=== PATIENT | male | born 1975 ===

== ENCOUNTER 2016-10-16 14:48 | Inpatient (IN) | payer MEDICAID, OTHER ==
[2016-10-16 14:56] VITALS: RESP 20
[2016-10-16] MEDS ORDERED: Clindamycin 600mg/50ml D5W 50 ML IVPB ONE (15:46)
[2016-10-16 15:57] LABS: BASO % 0.2 % (0.0-2.0); EOS % 0.2 % (0.0-4.0); HEMATOCRIT 48.3 % (35.0-51.0); LYMPH # 0.8 K/uL (1.0-4.3); LYMPH % 7.5 % (20.0-40.0); MEAN CELL VOLUME 88.2 fL (80.0-94.0); MEAN CORPUSCULAR HEMOGLOBIN 29.6 pg (27.0-31.0); MEAN CORPUSCULAR HGB CONC 33.6 g/dL (33.0-37.0); MONO # 0.6 K/uL (0.0-0.8); MONO % 5.2 % (0.0-10.0); PLATELET COUNT 247 K/uL (130-400); RED CELL DISTRIBUTION WIDTH 13.2 % (11.5-14.5); WHITE BLOOD COUNT 11.2 K/uL (4.8-10.8)
--- NOTE | 2016-10-16 15:59 | RAD ---
PROCEDURE: CHEST RADIOGRAPH, 1 VIEW HISTORY: pre-adm COMPARISON: None available. FINDINGS: LUNGS: Clear. PLEURA: No pneumothorax or pleural fluid seen. CARDIOVASCULAR: Normal. OSSEOUS STRUCTURES: No significant abnormalities. VISUALIZED UPPER ABDOMEN: Normal. OTHER FINDINGS: None. IMPRESSION: No active disease.
[2016-10-16 16:07] LABS: CHLORIDE 101 mmol/L (98-107); SODIUM 142 mmol/L (132-148)
[2016-10-16 16:08] LABS: POTASSIUM 3.8 mmol/L (3.6-5.2)
--- NOTE | 2016-10-16 16:08 | RAD ---
PROCEDURE: Right tibia/fibula dated 10/16/2016 HISTORY: cellulitis COMPARISON: No prior study available comparison. TECHNIQUE: Frontal and lateral views of the right tibia and fibula performed. FINDINGS: Current study reveals no evidence of acute displaced fracture nor dislocation. The osseous structures appear intact. No evidence of cortical destruction. There are infiltration. Changes seen within lateral subcutaneous tissues consistent with this patient's history of cellulitis. No evidence of gas seen within the soft tissues. IMPRESSION: Findings consistent with cellulitis involving the lateral soft tissues as described. No air seen within the soft tissues. No evidence of acute displaced fracture, dislocation or cortical destructive changes
[2016-10-16 16:10] LABS: ALB/GLOB RATIO 1.3 (1.0-2.1); ALKALINE PHOSPHATASE 103 U/L (38-126); ALT/SGPT 24 U/L (21-72); AST/SGOT 27 U/L (17-59); BILIRUBIN,TOTAL 0.6 mg/dL (0.2-1.3); BLOOD UREA NITROGEN 11 mg/dL (9-20); CARBON DIOXIDE 29 mmol/L (22-30); GFR AFRICAN-AMERICAN > 60; GLUCOSE,RANDOM 98 mg/dL (75-110)
--- NOTE | 2016-10-16 16:37 | C.PDOC ---
History Of Present Illness 41 y/o male presents to the ED with complains of abscess to right lower lateral leg x4 days. Abscess is painful and draining. Pt also reports subjective fever. No other complaints at this time. Time Seen by Provider: 10/16/16 14:59 Chief Complaint (Nursing): Lower Extremity Problem/Injury History Per: Patient History/Exam Limitations: no limitations Onset/Duration Of Symptoms: Days Current Symptoms Are (Timing): Still Present Severity: Moderate Recent travel outside of the [place]: No Past Medical History Reviewed: Historical Data, Nursing Documentation, Vital Signs Vital Signs: Last Vital Signs Temp 99.4 F 10/16/16 14:54 Pulse 86 10/16/16 14:54 Resp 20 10/16/16 14:54 BP 138/92 H 10/16/16 14:54 Pulse Ox 100 10/16/16 16:38 Family History: States: Unknown Family Hx - Social History Hx Alcohol Use: No Hx Substance Use: No - Immunization History Hx Tetanus Toxoid Vaccination: No Hx Influenza Vaccination: No Hx Pneumococcal Vaccination: No Review Of Systems Except As Marked, All Systems Reviewed And Found Negative. Constitutional: Positive for: Fever Skin: Positive for: Other (abscess to right lower leg, painful, draining) Physical Exam - Physical Exam Appears: Non-toxic, No Acute Distress Skin: Warm, Dry, Other (right lateral proximal lower leg with ulcer-like lesion , purulent discharge, draining, surrounding erythema with streaking down to lateral malleolus) Head: Atraumatic, Normacephalic Cardiovascular: Rhythm Regular Respiratory: Normal Breath Sounds, No Rales, No Rhonchi, No Wheezing Extremity: Normal ROM, No Pedal Edema, Capillary Refill (<2 seconds) Neurological/Psych: Oriented x3, Normal Motor, Normal Sensation ED Course And Treatment - Laboratory Results Result Diagrams: 10/16/16 15:48 10/16/16 15:48 O2 Sat by Pulse Oximetry: 100 (on room air) Pulse Ox Interpretation: Normal Progress Note: Plan: Wound and blood culture, labs, clindamycin IV. Disposition - Disposition Disposition: HOSPITALIZED Disposition Time: 16:42 Condition: STABLE - Clinical Impression Clinical Impression: Cellulitis - PA / ASSET PROTECTION ASSISTANT / Resident Statement MD/DO has reviewed & agrees with the documentation as recorded. - Scribe Statement The provider has reviewed the documentation as recorded by the Tommy Thompson All medical record entries made by the Scribe were at my direction and personally dictated by me. I have reviewed the chart and agree that the record accurately reflects my personal performance of the history, physical exam, medical decision making, and the department course for this patient. I have also personally directed, reviewed, and agree with the discharge instructions and disposition. Decision To Admit - Pt Status Changed To: Hospital Disposition Of: Inpatient - Admit Certification Admit to Inpatient:: After my assessment, the patient will require hospitalization for at least two midnights. This is because of the severity of symptoms shown, intensity of services needed, and/or the medical risk in this patient being treated as an outpatient. - InPatient: Physician Admission Certification: I certify that this patient requires 2 or more midnights of care for the following reason:: Needs more than 2 days of IV abx - . Bed Request Type: Regular Admitting Physician: Benny Hopson Patient Diagnosis: Cellulitis
[2016-10-16 16:57] LABS: NEUTROPHIL 86 % (50-75); TOTAL CELLS COUNTED 100
[2016-10-16 16:59] LABS: LARGE PLATELETS PRESENT
--- NOTE | 2016-10-16 17:24 | CP.PCM.HP ---
History of Present Illness - History of Present Illness History of Present Illness: Patient seen, examined at [facility] with mother at bedside on 10/16/16 at 5:00PM. CC: "lI have pain over right side" HPI: 41 year old Male denies prior medical history reports comes for worsening right lower leg wound X5 days. Patient reports he noticed on Wednesday which he reports he had a bubble wound over his right lower extremity. Patient reports he tried to clean with soap with water, rubbing alcohol, and antibiotic ointment but cannot recall the name but did not help. Patient reports he came in because the pain, associated swelling and pruritus became worse. Patient accompanied by mother at bedside. ROS: Denies fever, denies chills, denies fatigue Denies chest pain, denies shortness of breathe, denies cough Denies abdominal pain, denies nausea, denies vomiting, denies change in bowel habits Denies dysuria, denies hematuria, denies frequency Denies numbness/tingling Reports pain localized to right lower leg wound, associated pruritus and swelling PMHx: denies Surgery Hx: denies Allergies: denies Medications: not currently Social hx: denies smoking, denies etoh, denies illict drug use Family hx: mother-good health (at bedside); father-HTN HCM: does not have a primary care doctor In the ED, received one dose of Clindamcyin IV. Present on Admission - Present on Admission Any Indicators Present on Admission: No History of DVT/PE: No History of Uncontrolled Diabetes: No Urinary Catheter: No Decubitus Ulcer Present: No Review of Systems - Constitutional Constitutional: absent: Anorexia, Chills, Daytime Sleepiness, Headache, Increased Appetite - EENT Eyes: absent: Blurred Vision Ears: absent: Decreased Hearing Nose/Mouth/Throat: absent: Nasal Congestion, Nasal Discharge, Sore Throat - Cardiovascular Cardiovascular: absent: Chest Pain, Claudication, Dyspnea, Leg Edema, Palpitations - Respiratory Respiratory: absent: Cough, Dyspnea, Chest Congestion - Gastrointestinal Gastrointestinal: absent: Abdominal Pain, Change in Stool Character, Constipation, Nausea, Vomiting - Genitourinary Genitourinary: absent: Dysuria, Flank Pain, Hematuria, Pyuria - Musculoskeletal Musculoskeletal: absent: Back Pain, Deformity, Joint Swelling, Myalgias, Neck Pain, Numbness - Integumentary Integumentary: Pruritus, Rash, Skin Pain, Skin Ulcer, Swelling. absent: Lesions , Photosensitivity - Neurological Neurological: absent: Confusion, Disequilibrium, Headaches, Syncope, Tremor, Weakness - Psychiatric Psychiatric: absent: Change in Appetite - Endocrine Endocrine: absent: Fatigue, Palpitations Past Patient History - Infectious Disease Hx of Infectious Diseases: None - Tetanus Immunizations Tetanus Immunization: Unknown - Past Medical History & Family History Past Medical History?: Yes Past Family History: Reviewed and not pertinent - Past Social History Smoking Status: Never Smoked - PSYCHIATRIC Hx Substance Use: No - SURGICAL HISTORY Hx Surgeries: No - ANESTHESIA Hx Anesthesia: No Hx Anesthesia Reactions: No Meds Allergies/Adverse Reactions: Allergies Allergy/AdvReac Type Severity Reaction Status Date / Time No Known Allergies Allergy Verified 10/16/16 14:59 Physical Exam - Constitutional Appears: Non-toxic, No Acute Distress - Head Exam Head Exam: NORMAL INSPECTION - Eye Exam Eye Exam: EOMI, PERRL Pupil Exam: NORMAL ACCOMODATION, PERRL - ENT Exam ENT Exam: Mucous Membranes Dry - Neck Exam Neck exam: Positive for: Normal Inspection. Negative for: Lymphadenopathy, Meningismus, Tenderness - Respiratory Exam Respiratory Exam: Clear to Auscultation Bilateral, NORMAL BREATHING PATTERN. absent: Rales, Rhonchi, Wheezes, Respiratory Distress - Cardiovascular Exam Cardiovascular Exam: REGULAR RHYTHM, +S1, +S2 - GI/Abdominal Exam GI & Abdominal Exam: Normal Bowel Sounds, Soft. absent: Distended, Firm, Guarding, Rebound, Rigid, Tenderness - Extremities Exam Extremities exam: Positive for: pedal pulses present. Negative for: joint swelling, pedal edema, tenderness - Back Exam Back exam: absent: CVA tenderness (L), CVA tenderness (R) - Neurological Exam Neurological exam: Alert, CN II-XII Intact, Oriented x3 - Psychiatric Exam Psychiatric exam: Normal Affect, Normal Mood - Skin Skin Exam: Dry, Rash, Warm Additional comments: right lower extremity * aspect of lateral thigh * wound is diameter of 2.0 cm and with associated erythema is 7.5cm * wound is brown eschar, with pinpoint blood coming from the center * area demarcated over the site Results - Vital Signs Recent Vital Signs: Last Vital Signs Temp 98.6 F 10/16/16 16:55 Pulse 70 10/16/16 16:55 Resp 20 10/16/16 16:55 BP 117/80 10/16/16 16:55 Pulse Ox 99 10/16/16 16:55 - Labs Result Diagrams: 10/16/16 15:48 10/16/16 15:48 Assessment & Plan (1) Abscess Status: Suspected Comment: Ordered for non-extremity ultrasound r/o abscess for right lower extremity wound. General surgery (Dr. Montaño) consulted-->help appreciated reason: possible abscess. IV abx: Zosyn 3.375g IV Q 6 hours PRN; Vancomycin 1gram IV Q 12hours (2) Cellulitis Status: Acute Comment: Ordered for non-extremity ultrasound r/o abscess for right lower extremity wound. General surgery (Dr. Montaño) consulted-->help appreciated reason: possible abscess. IV abx: Zosyn 3.375g IV Q 6 hours PRN; Vancomycin 1gram IV Q 12hours (active since 10/16/16). Florastor 250mg PO bid. Demarcated area of cellulitis. Tibia-fibula (10/16/16): consistent with cellulitis involving the lateral soft tissues as described. No air seen within the soft tissues. No evidence of acute displaced fracture, dislocation, or cortical destructive changes. (3) Leukocytosis Status: Acute Comment: likely secondary to cellulitis and/or abscess. will rule out other infectious causes. Blood cultures X 2 and urine culture ordered (4) Prophylactic measure Status: Acute Comment: Protonix 40mg Iv q daily for GI ppx. SCDs b/l for DVT ppx - Assessment and Plan (Free Text) Assessment: Disposition: IV abx General surgery eval Pain PRN US r/o abscess - Date & Time Date: 10/16/16 Time: 17:00
--- NOTE | 2016-10-16 18:27 | US ---
Indication: right lower leg wound; possible abscess Extremity nonvascular ultrasound, right lower leg wound Comparison: Tibia fibula x-ray performed earlier the same day. Findings: Images were obtained in the limited region of interest. Soft tissue edema. No focal fluid collection or definite abscess identified. Impression: Limited study. Soft tissue edema.
[2016-10-16] MEDS: Piperacill/Tazo 3.375gm in Dex 50 ML IVPB SCH ×2 (18:30→23:53)
[2016-10-16] MEDS: Sodium Chloride 0.9% 1,000 ML IV SCH (18:30)
[2016-10-16] MEDS: Vancomycin 1 gm/NS 200 ml 200 ML IVPB SCH (19:00)
[2016-10-16] MEDS: Saccharomyces Boulardi 250 mg Cap PO SCH (19:16)
[2016-10-17] MEDS: Sodium Chloride 0.9% 1,000 ML IV SCH (05:27)
[2016-10-17] MEDS: Piperacill/Tazo 3.375gm in Dex 50 ML IVPB SCH ×3 (05:28→17:27)
[2016-10-17] MEDS: Vancomycin 1 gm/NS 200 ml 200 ML IVPB SCH ×2 (06:21→20:59)
--- NOTE | 2016-10-17 06:31 | CP.PCM.CON ---
History of Present Illness - History of Present Illness History of Present Illness: Surgery Consult: Dr. Montaño Pt is a 41M with no PMHx who presented to with complaints of Right leg swelling & pain. Pt states he had a small bump on his R leg on Wednesday that kept getting bigger as the week progressed. He also started noticing surrounding redness and pain. Pt states the area was itchy and he tried several home remedies but the swelling did not improve. He denies any trauma to the area but states he may have been bit by something. Denies other associated symptoms such as N/V, F/C, chest pain or SOB. Pt had an X-ray and US of his R lower leg which are consistent with soft tissue inflammation/cellulitis w/o definite abscess formation. Surgery consulted to evaluate. Currently, pt is resting comfortably in bed. Denies any pain or difficulty ambulating. PMHx: denies PSHx: denies SocialHx: denies smoking, EtOH/drugs NKDA Review of Systems - Review of Systems All systems: reviewed and no additional remarkable complaints except (as per HPI ) Past Patient History - Infectious Disease Hx of Infectious Diseases: None - Tetanus Immunizations Tetanus Immunization: Unknown - Past Medical History & Family History Past Medical History?: Yes - Past Social History Smoking Status: Never Smoked - MUSCULOSKELETAL/RHEUMATOLOGICAL Hx Falls: No - PSYCHIATRIC Hx Substance Use: No - SURGICAL HISTORY Hx Surgeries: No - ANESTHESIA Hx Anesthesia: No Hx Anesthesia Reactions: No Meds Allergies/Adverse Reactions: Allergies Allergy/AdvReac Type Severity Reaction Status Date / Time No Known Allergies Allergy Verified 10/16/16 14:59 - Medications Medications: Current Medications Acetaminophen (Tylenol 325mg Tab) 650 mg PO Q6 PRN PRN Reason: Pain, moderate (4-7) Piperacillin Sod/Tazobactam Sod (Zosyn 3.375 Gm Iv Premix) 50 mls @ 100 mls/hr IVPB Q6H [facility] [place] Last Admin: 10/17/16 05:28 Dose: 100 mls/hr Vancomycin/Sodium Chloride (Vancocin) 200 mls @ 133 mls/hr IVPB Q12H [facility] [place] Stop: 10/21/16 19:01 Last Admin: 10/17/16 06:21 Dose: 133 mls/hr Sodium Chloride (Sodium Chloride 0.9%) 1,000 mls @ 100 mls/hr IV .Q10H [facility] [place] Last Admin: 10/17/16 05:27 Dose: Not Given Pneumococcal Polyvalent Vaccine (Pneumovax 23 Vaccine) 0.5 ml IM .ONCE ONE Stop: 10/18/16 10:01 Saccharomyces Boulardii (Florastor) 250 mg PO BID [facility] [place] Last Admin: 10/16/16 19:16 Dose: 250 mg Physical Exam - Constitutional Appears: Well, No Acute Distress - Head Exam Head Exam: ATRAUMATIC, NORMOCEPHALIC - Eye Exam Eye Exam: Normal appearance - ENT Exam ENT Exam: Mucous Membranes Moist - Respiratory Exam Respiratory Exam: NORMAL BREATHING PATTERN - Cardiovascular Exam Cardiovascular Exam: RRR - GI/Abdominal Exam GI & Abdominal Exam: Soft. absent: Distended, Tenderness - Rectal Exam Rectal Exam: Deferred - Extremities Exam Additional comments: Right lateral leg with 1x1cm ulcerated lesion, surrounding erythema/ inflammation. No fluctuance or active drainage noted. 2+ pulses b/l, normal ROM - Neurological Exam Neurological exam: Alert, Oriented x3 - Skin Skin Exam: Dry, Intact, Warm Results - Vital Signs Recent Vital Signs: Last Vital Signs Temp 98.4 F 10/16/16 23:57 Pulse 72 10/16/16 23:57 Resp 20 10/16/16 23:57 BP 132/82 10/16/16 23:57 Pulse Ox 97 10/16/16 23:57 - Labs Result Diagrams: 10/16/16 15:48 10/16/16 15:48 Labs: Laboratory Results - last 24 hr 10/16/16 19:34 Hemoglobin A1c 5.2 - Imaging and Cardiology US R leg Status: Image reviewed by me, Report reviewed by me X-Ray R leg Status: Image reviewed by me, Report reviewed by me Assessment & Plan - Assessment and Plan (Free Text) Assessment: 41M with R leg cellulitis Plan: - no collection present to be drained at this time - start warm compresses; if area becomes fluctuant will consider I&D - cont IV ABX - will cont to monitor - d/w Dr. Danyel Goldberg, PGY-2 Surgery
[2016-10-17 07:20] LABS: INR 1.3
[2016-10-17 07:23] LABS: BASO % 0.1 % (0.0-2.0); EOS % 0.7 % (0.0-4.0); HEMATOCRIT 44.6 % (35.0-51.0); LYMPH % 13.8 % (20.0-40.0); MEAN CELL VOLUME 88.9 fL (80.0-94.0); MEAN CORPUSCULAR HEMOGLOBIN 30.1 pg (27.0-31.0); MEAN CORPUSCULAR HGB CONC 33.8 g/dL (33.0-37.0); MEAN PLATELET VOLUME 8.8 fL (7.2-11.7); MONO # 0.5 K/uL (0.0-0.8); MONO % 6.9 % (0.0-10.0); RED CELL DISTRIBUTION WIDTH 12.9 % (11.5-14.5); WHITE BLOOD COUNT 7.3 K/uL (4.8-10.8)
[2016-10-17 07:28] LABS: CHLORIDE 103 mmol/L (98-107); POTASSIUM 3.8 mmol/L (3.6-5.2); SODIUM 143 mmol/L (132-148)
[2016-10-17 07:30] LABS: GFR AFRICAN-AMERICAN > 60
[2016-10-17 07:31] LABS: ALB/GLOB RATIO 1.2 (1.0-2.1); ALKALINE PHOSPHATASE 94 U/L (38-126); ALT/SGPT 21 U/L (21-72); AST/SGOT 21 U/L (17-59); BILIRUBIN,TOTAL 0.9 mg/dL (0.2-1.3); BLOOD UREA NITROGEN 11 mg/dL (9-20); CALCIUM 8.7 mg/dl (8.6-10.4); CARBON DIOXIDE 24 mmol/L (22-30); GLUCOSE,RANDOM 92 mg/dL (75-110); TOTAL PROTEIN 7.2 g/dL (6.3-8.3)
[2016-10-17 07:32] LABS: MAGNESIUM 2.2 mg/dL (1.6-2.3)
[2016-10-17] MEDS: Saccharomyces Boulardi 250 mg Cap PO SCH ×2 (10:00→17:27)
[2016-10-17] MEDS: Enoxaparin 40 mg Syringe SC SCH (10:02)
--- NOTE | 2016-10-17 13:06 | CP.PCM.PN ---
<Hanh Cardoza - Last Filed: 10/17/16 13:03> Subjective - Date & Time of Evaluation Date of Evaluation: 10/17/16 Time of Evaluation: 07:45 - Subjective Subjective: Internal medicine progress note for Hospitalist service- Hanh Cardoza, PGY-1 Pt S & E at bedside. Pt reports no problems overnight. Denies N/V/F/C, SOB, CP, ab pain, RLE pain, itching. Tolerating diet. Objective - Vital Signs/Intake and Output Vital Signs (last 24 hours): Temp Pulse Resp BP Pulse Ox 97.3 F L 69 20 130/84 100 10/17/16 07:39 10/17/16 07:39 10/17/16 07:39 10/17/16 07:39 10/17/16 07:39 Intake and Output: 10/17/16 10/17/16 06:59 18:59 Intake Total 300 Balance 300 - Medications Medications: Current Medications Acetaminophen (Tylenol 325mg Tab) 650 mg PO Q6 PRN PRN Reason: Pain, moderate (4-7) Enoxaparin Sodium (Lovenox) 40 mg SC DAILY [facility] Last Admin: 10/17/16 10:02 Dose: 40 mg Piperacillin Sod/Tazobactam Sod (Zosyn 3.375 Gm Iv Premix) 50 mls @ 100 mls/hr IVPB Q6H [facility] Last Admin: 10/17/16 12:02 Dose: 100 mls/hr Vancomycin/Sodium Chloride (Vancocin) 200 mls @ 133 mls/hr IVPB Q12H [facility] Stop: 10/21/16 19:01 Last Admin: 10/17/16 06:21 Dose: 133 mls/hr Pneumococcal Polyvalent Vaccine (Pneumovax 23 Vaccine) 0.5 ml IM .ONCE ONE Stop: 10/18/16 10:01 Saccharomyces Boulardii (Florastor) 250 mg PO BID [facility] Last Admin: 10/17/16 10:00 Dose: 250 mg - Labs Labs: 10/17/16 07:08 10/17/16 07:08 PT 14.3 SECONDS (9.7-12.2) H 10/17/16 07:08 INR 1.3 10/17/16 07:08 - Constitutional Appears: Non-toxic, No Acute Distress - Head Exam Head Exam: ATRAUMATIC, NORMAL INSPECTION, NORMOCEPHALIC - Eye Exam Eye Exam: EOMI, Normal appearance, PERRL Pupil Exam: NORMAL ACCOMODATION, PERRL - ENT Exam ENT Exam: Mucous Membranes Moist, Normal Exam - Neck Exam Neck Exam: Full ROM, Normal Inspection - Respiratory Exam Respiratory Exam: Clear to Ausculation Bilateral, NORMAL BREATHING PATTERN - Cardiovascular Exam Cardiovascular Exam: REGULAR RHYTHM, +S1, +S2 - GI/Abdominal Exam GI & Abdominal Exam: Soft, Normal Bowel Sounds. absent: Tenderness - Extremities Exam Extremities Exam: Full ROM. absent: Normal Inspection (Right lateral leg with cellulitic area, approximately 5x5cm, demarcated with pen, central scab, minimal induration, no noted fluctuance, no kobe drainage noted, dressing in place with slightly serous drainage), Pedal Edema, Tenderness - Back Exam Back Exam: Full ROM, NORMAL INSPECTION. absent: paraspinal tenderness, tenderness - Neurological Exam Neurological Exam: Alert, Awake, CN II-XII Intact, Oriented x3 - Psychiatric Exam Psychiatric exam: Normal Affect, Normal Mood - Skin Skin Exam: Dry, Erythema (RLE, see extremity exam for skin findings), Warm. absent: Intact, Normal Color Assessment and Plan - Assessment and Plan (Free Text) Assessment: Cellulitis/ abscess of RLE Cont Zosyn Cont vanc Cont Floraster FU Vanc trough tomorrow AM RLE U/S w/soft tissue edema, limited study Hgb A1c 5.2 Wound cxr pos for Gram pos cocci in clusters- prelim Surgery recs: - no collection present to be drained at this time - start warm compresses; if area becomes fluctuant will consider I&D - cont IV ABX - will cont to monitor Leukocytosis-resolved WBC 7.3 from 11.2 Afebrile over 24H FU Blood cxr FU Urine cxr GI/DVT ppx Protonix SCDs Encourage ambulation Dispo FU vanc trough in AM Cont med mgmt Cont warm compresses to area Possible d/c in AM DW attending <Haley Nieto V - Last Filed: 10/17/16 13:32> Objective - Vital Signs/Intake and Output Vital Signs (last 24 hours): Temp Pulse Resp BP Pulse Ox 97.3 F L 69 20 130/84 100 10/17/16 07:39 10/17/16 07:39 10/17/16 07:39 10/17/16 07:39 10/17/16 07:39 Intake and Output: 10/17/16 10/17/16 06:59 18:59 Intake Total 300 Balance 300 - Medications Medications: Current Medications Acetaminophen (Tylenol 325mg Tab) 650 mg PO Q6 PRN PRN Reason: Pain, moderate (4-7) Enoxaparin Sodium (Lovenox) 40 mg SC DAILY [facility] Last Admin: 10/17/16 10:02 Dose: 40 mg Piperacillin Sod/Tazobactam Sod (Zosyn 3.375 Gm Iv Premix) 50 mls @ 100 mls/hr IVPB Q6H [facility] Last Admin: 10/17/16 12:02 Dose: 100 mls/hr Vancomycin/Sodium Chloride (Vancocin) 200 mls @ 133 mls/hr IVPB Q12H [facility] Stop: 10/21/16 19:01 Last Admin: 10/17/16 06:21 Dose: 133 mls/hr Pneumococcal Polyvalent Vaccine (Pneumovax 23 Vaccine) 0.5 ml IM .ONCE ONE Stop: 10/18/16 10:01 Saccharomyces Boulardii (Florastor) 250 mg PO BID [facility] Last Admin: 10/17/16 10:00 Dose: 250 mg - Labs Labs: 10/17/16 07:08 10/17/16 07:08 PT 14.3 SECONDS (9.7-12.2) H 10/17/16 07:08 INR 1.3 10/17/16 07:08 Assessment and Plan (1) Abscess Status: Suspected (2) Cellulitis Status: Acute (3) Leukocytosis Status: Acute (4) Prophylactic measure Status: Acute Attending/Attestation - Attestation I have personally seen and examined this patient.: Yes I have fully participated in the care of the patient.: Yes I have reviewed all pertinent clinical information, including history, physical exam and plan: Yes Notes (Text): Patient seen, examined, and case discussed with day-time resident. Patient reports he is feeling better, pain is better controlled, seen by surgery today. Discussed with surgical supplies sterilizer, advised for warm compresses and continue IV abxs. Assessment/Plan (1) Abscess Status: Suspected Comment: Ordered for non-extremity ultrasound r/o abscess for right lower extremity wound. General surgery (Dr. Montaño) consulted-->help appreciated reason: possible abscess. IV abx: Zosyn 3.375g IV Q 6 hours; Vancomycin 1gram IV Q 12hours (active since 10/16/16) Ultrasound (10/16/16): limited. soft tissue edema Advised warm compresses and c/w Iv Abx (2) Cellulitis Status: Acute Comment: General surgery (Dr. Montaño) consulted-->help appreciated reason: possible abscess. IV abx: Zosyn 3.375g IV Q 6 hours PRN; Vancomycin 1gram IV Q 12hours (active since 10/16/16). Florastor 250mg PO bid. Demarcated area of cellulitis. Tibia-fibula (10/16/16): consistent with cellulitis involving the lateral soft tissues as described. No air seen within the soft tissues. No evidence of acute displaced fracture, dislocation, or cortical destructive changes. Ultrasound (10/16/16): limited. soft tissue edema 10/16/16 Wound culture: gram positive cultures 10/17/16: would culture: pending (3) Leukocytosis Status: resolved Comment: likely secondary to cellulitis and/or abscess. will rule out other infectious causes. Blood cultures X 2 and urine culture ordered-->pending (4) Prophylactic measure Status: Acute Comment: Protonix 40mg Iv q daily for GI ppx. SCDs b/l for DVT ppx
[2016-10-18] MEDS: Piperacill/Tazo 3.375gm in Dex 50 ML IVPB SCH ×2 (05:15)
[2016-10-18] MEDS: Vancomycin 1 gm/NS 200 ml 200 ML IVPB SCH (06:45)
[2016-10-18 07:36] VITALS: BP 136/90; PULSE 63; TEMP 98.5; O2SAT 98
[2016-10-18] MEDS: Saccharomyces Boulardi 250 mg Cap PO SCH (09:16)
[2016-10-18] MEDS: Enoxaparin 40 mg Syringe SC SCH (09:16)
[2016-10-18] MEDS ORDERED: Pneumococcal 23-Valent Vaccine IM ONE (10:00)
--- NOTE | 2016-10-18 11:35 | CP.PCM.DIS ---
<Haley Nieto V - Last Filed: 10/18/16 22:52> Provider - Provider Date of Admission: 10/16/16 16:40 Attending physician: Haley Nieto DO Diagnosis - Discharge Diagnosis (1) Abscess Status: Suspected (2) Cellulitis Status: Acute (3) Leukocytosis Status: Acute (4) Prophylactic measure Status: Acute Hospital Course - Lab Results Lab Results: Micro Results 10/16/16 22:59 Nose MRSA Culture - Final MRSA NOT DETECTED 10/17/16 07:40 Leg - Right Gram Stain - Final 10/17/16 07:40 Leg - Right Wound Culture - Preliminary Gram Pos Cocci In Clusters 10/16/16 Unknown Leg - Right Gram Stain - Final 10/16/16 Unknown Leg - Right Wound Culture - Final Methicillin Resistant S Aureus Most Recent Lab Values WBC 7.3 K/uL (4.8-10.8) 10/17/16 07:08 RBC 5.02 Mil/uL (4.40-5.90) 10/17/16 07:08 Hgb 15.1 g/dL (12.0-18.0) 10/17/16 07:08 Hct 44.6 % (35.0-51.0) 10/17/16 07:08 MCV 88.9 fL (80.0-94.0) 10/17/16 07:08 MCH 30.1 pg (27.0-31.0) 10/17/16 07:08 MCHC 33.8 g/dL (33.0-37.0) 10/17/16 07:08 RDW 12.9 % (11.5-14.5) 10/17/16 07:08 Plt Count 224 K/uL (130-400) 10/17/16 07:08 MPV 8.8 fL (7.2-11.7) 10/17/16 07:08 Neut % (Auto) 78.5 % (50.0-75.0) H 10/17/16 07:08 Lymph % (Auto) 13.8 % (20.0-40.0) L 10/17/16 07:08 [place] % (Auto) 6.9 % (0.0-10.0) 10/17/16 07:08 Eos % (Auto) 0.7 % (0.0-4.0) 10/17/16 07:08 Baso % (Auto) 0.1 % (0.0-2.0) 10/17/16 07:08 Neut # 5.8 K/uL (1.8-7.0) 10/17/16 07:08 Lymph # 1.0 K/uL (1.0-4.3) 10/17/16 07:08 [place] # 0.5 K/uL (0.0-0.8) 10/17/16 07:08 Eos # 0.0 K/uL (0.0-0.7) 10/17/16 07:08 Baso # 0.0 K/uL (0.0-0.2) 10/17/16 07:08 Neutrophils % (Manual) 86 % (50-75) H 10/16/16 15:48 Lymphocytes % (Manual) 6 % (20-40) L 10/16/16 15:48 Monocytes % (Manual) 8 % (0-10) 10/16/16 15:48 Platelet Estimate Normal (NORMAL) 10/16/16 15:48 Large Platelets Present 10/16/16 15:48 Microcytosis (manual) Slight 10/16/16 15:48 PT 14.3 SECONDS (9.7-12.2) H 10/17/16 07:08 INR 1.3 10/17/16 07:08 Sodium 143 mmol/L (132-148) 10/17/16 07:08 Potassium 3.8 mmol/L (3.6-5.2) 10/17/16 07:08 Chloride 103 mmol/L (98-107) 10/17/16 07:08 Carbon Dioxide 24 mmol/L (22-30) 10/17/16 07:08 Anion Gap 19 (10-20) 10/17/16 07:08 BUN 11 mg/dL (9-20) 10/17/16 07:08 Creatinine 0.8 MG/DL (0.8-1.5) 10/17/16 07:08 Est GFR ( Amer) > 60 10/17/16 07:08 Est GFR (Non-Af Amer) > 60 10/17/16 07:08 Random Glucose 92 mg/dL (75-110) 10/17/16 07:08 Hemoglobin A1c 5.2 % (4.2-6.5) 10/16/16 19:34 Calcium 8.7 mg/dl (8.6-10.4) 10/17/16 07:08 Magnesium 2.2 mg/dL (1.6-2.3) 10/17/16 07:08 Total Bilirubin 0.9 mg/dL (0.2-1.3) 10/17/16 07:08 AST 21 U/L (17-59) 10/17/16 07:08 ALT 21 U/L (21-72) 10/17/16 07:08 Alkaline Phosphatase 94 U/L (38-126) 10/17/16 07:08 Total Protein 7.2 g/dL (6.3-8.3) 10/17/16 07:08 Albumin 3.8 g/dL (3.5-5.0) 10/17/16 07:08 Globulin 3.3 gm/dL (2.2-3.9) 10/17/16 07:08 Albumin/Globulin Ratio 1.2 (1.0-2.1) 10/17/16 07:08 Vancomycin Trough 8.5 ug/mL (5.0-10.0) 10/18/16 06:26 Discharge Plan - Discharge Medications Prescriptions: Clindamycin [Cleocin] 300 mg PO QID #28 cap - Follow Up Plan Condition: STABLE Disposition: HOME/ ROUTINE Instructions: Clindamycin (By mouth), Cellulitis (DC) Additional Instructions: Patient medically stable for discharge as per Dr. Nieto. Patient is to take new medications Clindamycin 300 mg by mouth four times per day with yogurt for 7 days. Patient is to resume home medications as previously prescribed. Patient is to follow up with PMD within 1 week. Patient may resume physical activity as tolerated. Please return to ER if symptoms persist or condition worsens. All instructions stated above were discussed in detail with patient. He verbalized understanding and agreement. Referrals: Bobby Montaño MD [Staff Provider] - Haley Nieto DO [Staff Provider] - Attending/Attestation - Attestation I have personally seen and examined this patient.: Yes I have fully participated in the care of the patient.: Yes I have reviewed all pertinent clinical information, including history, physical exam and plan: Yes Notes (Text): Patient seen, examined, and case discussed with day-time resident. Patient reports he is feeling better, pain is better controlled, seen by surgery and does not need further intervention. Patient's. Discussed with vice president financial, advised for warm compresses. Patient's culture was sensitive to MRSA and sensitive to Clindamycin. Patient's white count normalized and afebrile. Patient's cellulitis improving and the scab draining with dressing. Patient advised to completed 7 day course of Clindamycin 300mg PO QID (28 pills/ no refills) with yogurt. Patient advised to follow-up in the [facility] in on week to check the site and see resolution of the site. Patient provided work note by the resident for time during hospitalization. Discussed discharge order and discharge instructions; patient verbalized understanding and agrees. This is a summary of patient's hospitalization. Please review EMR for further details. Assessment/Plan (1) Abscess Status: Ruled out Comment: General surgery (Dr. Montaño) consulted-->help appreciated reason: possible abscess. IV abx: Zosyn 3.375g IV Q 6 hours; Vancomycin 1gram IV Q 12hours (active since 10/16/16) Ultrasound (10/16/16): limited. soft tissue edema Advised warm compresse MRSA+ wound; sensitive to Vancomycin; and Clindamycin-->patient discharged to on Clindamycin (2) Cellulitis Status: Acute Comment: General surgery (Dr. Montaño) consulted-->help appreciated reason: possible abscess. IV abx: Zosyn 3.375g IV Q 6 hours PRN; Vancomycin 1gram IV Q 12hours (active since 10/16/16). Florastor 250mg PO bid. Demarcated area of cellulitis. Tibia-fibula (10/16/16): consistent with cellulitis involving the lateral soft tissues as described. No air seen within the soft tissues. No evidence of acute displaced fracture, dislocation, or cortical destructive changes. Ultrasound (10/16/16): limited. soft tissue edema 10/16/16 Wound culture: MRSA 10/17/16: would culture: pending Improving Patient discharged on Clindamycin 300mg PO QID for 7 days and advised to take with yogurt (3) Leukocytosis Status: resolved Comment: likely secondary to cellulitis Blood cultures X 2 negative for 48 hours Normalized and afebrile (4) Prophylactic measure Status: Acute Comment: Protonix 40mg Iv q daily for GI ppx. SCDs b/l for DVT ppx <Dale Lopez - Last Filed: 10/18/16 23:29> Provider - Provider Date of Admission: 10/16/16 16:40 Attending physician: Haley Nieto DO Consults: surgery: montaño Time Spent in preparation of Discharge (in minutes): 40 Diagnosis - Discharge Diagnosis (1) Cellulitis Status: Acute Comment: see hospital course Hospital Course - Lab Results Lab Results: Micro Results 10/16/16 Unknown Leg - Right Gram Stain - Final 10/16/16 Unknown Leg - Right Wound Culture - Final Methicillin Resistant S Aureus 10/17/16 07:40 Leg - Right Gram Stain - Final Most Recent Lab Values WBC 7.3 K/uL (4.8-10.8) 10/17/16 07:08 RBC 5.02 Mil/uL (4.40-5.90) 10/17/16 07:08 Hgb 15.1 g/dL (12.0-18.0) 10/17/16 07:08 Hct 44.6 % (35.0-51.0) 10/17/16 07:08 MCV 88.9 fL (80.0-94.0) 10/17/16 07:08 MCH 30.1 pg (27.0-31.0) 10/17/16 07:08 MCHC 33.8 g/dL (33.0-37.0) 10/17/16 07:08 RDW 12.9 % (11.5-14.5) 10/17/16 07:08 Plt Count 224 K/uL (130-400) 10/17/16 07:08 MPV 8.8 fL (7.2-11.7) 10/17/16 07:08 Neut % (Auto) 78.5 % (50.0-75.0) H 10/17/16 07:08 Lymph % (Auto) 13.8 % (20.0-40.0) L 10/17/16 07:08 [place] % (Auto) 6.9 % (0.0-10.0) 10/17/16 07:08 Eos % (Auto) 0.7 % (0.0-4.0) 10/17/16 07:08 Baso % (Auto) 0.1 % (0.0-2.0) 10/17/16 07:08 Neut # 5.8 K/uL (1.8-7.0) 10/17/16 07:08 Lymph # 1.0 K/uL (1.0-4.3) 10/17/16 07:08 [place] # 0.5 K/uL (0.0-0.8) 10/17/16 07:08 Eos # 0.0 K/uL (0.0-0.7) 10/17/16 07:08 Baso # 0.0 K/uL (0.0-0.2) 10/17/16 07:08 Neutrophils % (Manual) 86 % (50-75) H 10/16/16 15:48 Lymphocytes % (Manual) 6 % (20-40) L 10/16/16 15:48 Monocytes % (Manual) 8 % (0-10) 10/16/16 15:48 Platelet Estimate Normal (NORMAL) 10/16/16 15:48 Large Platelets Present 10/16/16 15:48 Microcytosis (manual) Slight 10/16/16 15:48 PT 14.3 SECONDS (9.7-12.2) H 10/17/16 07:08 INR 1.3 10/17/16 07:08 Sodium 143 mmol/L (132-148) 10/17/16 07:08 Potassium 3.8 mmol/L (3.6-5.2) 10/17/16 07:08 Chloride 103 mmol/L (98-107) 10/17/16 07:08 Carbon Dioxide 24 mmol/L (22-30) 10/17/16 07:08 Anion Gap 19 (10-20) 10/17/16 07:08 BUN 11 mg/dL (9-20) 10/17/16 07:08 Creatinine 0.8 MG/DL (0.8-1.5) 10/17/16 07:08 Est GFR ( Amer) > 60 10/17/16 07:08 Est GFR (Non-Af Amer) > 60 10/17/16 07:08 Random Glucose 92 mg/dL (75-110) 10/17/16 07:08 Hemoglobin A1c 5.2 % (4.2-6.5) 10/16/16 19:34 Calcium 8.7 mg/dl (8.6-10.4) 10/17/16 07:08 Magnesium 2.2 mg/dL (1.6-2.3) 10/17/16 07:08 Total Bilirubin 0.9 mg/dL (0.2-1.3) 10/17/16 07:08 AST 21 U/L (17-59) 10/17/16 07:08 ALT 21 U/L (21-72) 10/17/16 07:08 Alkaline Phosphatase 94 U/L (38-126) 10/17/16 07:08 Total Protein 7.2 g/dL (6.3-8.3) 10/17/16 07:08 Albumin 3.8 g/dL (3.5-5.0) 10/17/16 07:08 Globulin 3.3 gm/dL (2.2-3.9) 10/17/16 07:08 Albumin/Globulin Ratio 1.2 (1.0-2.1) 10/17/16 07:08 Vancomycin Trough 8.5 ug/mL (5.0-10.0) 10/18/16 06:26 - Hospital Course Hospital Course: 41 M with no prior medical history presented for worsening right lower leg wound for five days. Patient reports he noticed it on Wednesday. He described it as a bubble wound over his urias. Patient states he tried to clean with soap with water, rubbing alcohol, and antibiotic ointment but cannot recall the name but did not help. Patient reports he came in today because the pain, associated swelling and pruritus became worse. Denies fever/chills, fatigue, chest pain, SOB, cough, palpitations, abd pain, n/v/d, change in bowel habits. Patient was admitted for cellulitis with suspected abscess. Patient was given a dose of IV clindmyacin in ER. Patient was then started on IV Zosyn and Vancomycin. RLE XR revealed cellulitis incilving the lateral soft tissues (see full report). The following day, wound culture came bacl positive for gram positive cocci in clusters. Patient continued IV antibiotics until 10/18 and later determined to be MRSA. On that day, patient was deemed medically stable for discharge by Dr. Nieto. Patient was sent home with oral clindamycin for seven days. This is a summary of the hospital course. Please refer to EMR for more specific details. Discharge Exam - Head Exam Head Exam: ATRAUMATIC, NORMAL INSPECTION, NORMOCEPHALIC - Eye Exam Eye Exam: EOMI, Normal appearance, PERRL - ENT Exam ENT Exam: Mucous Membranes Moist - Neck Exam Neck exam: Normal Inspection - Respiratory Exam Respiratory Exam: Clear to PA & Lateral, NORMAL BREATHING PATTERN - Cardiovascular Exam Cardiovascular Exam: REGULAR RHYTHM, +S1, +S2 - GI/Abdominal Exam GI & Abdominal Exam: Normal Bowel Sounds, Soft. absent: Tenderness - Extremities Exam Extremities exam: normal capillary refill, tenderness (mild to palpation to cellulitic/abscess area), pedal pulses present - Back Exam Back exam: absent: CVA tenderness (L), CVA tenderness (R) - Neurological Exam Neurological exam: Alert, CN II-XII Intact, Normal Gait, Oriented x3 - Psychiatric Exam Psychiatric exam: Normal Affect, Normal Mood - Skin Skin Exam: Dry, Intact, Warm Additional comments: approximately 5x5 cm area demarcated with pen, central scab, and minimal induration no fluctuance Dressing freshly changed
[2016-10-18] MEDS ORDERED: Piperacillin/Tazobact 3.375 gm 100 ML IVPB SCH (12:00)
--- NOTE | 2016-10-18 14:18 | CP.PCM.PN ---
Subjective - Date & Time of Evaluation Date of Evaluation: 10/18/16 Time of Evaluation: 07:30 - Subjective Subjective: Pt S&E. NAEO. Pt states he has less pain in his leg than yesterday. Pt states he is now able to walk, which he was unable to do before due to pain. Pt denies fever, chills, and nausea. Dressing changed and abscess expressed. Objective - Vital Signs/Intake and Output Vital Signs (last 24 hours): Temp Pulse Resp BP Pulse Ox 98.5 F 63 20 136/90 98 10/18/16 07:33 10/18/16 07:33 10/18/16 07:33 10/18/16 07:33 10/18/16 07:33 Intake and Output: 10/18/16 10/18/16 06:59 18:59 Intake Total 800 Balance 800 - Medications Medications: Current Medications Acetaminophen (Tylenol 325mg Tab) 650 mg PO Q6 PRN PRN Reason: Pain, moderate (4-7) Enoxaparin Sodium (Lovenox) 40 mg SC DAILY [facility] Last Admin: 10/18/16 09:16 Dose: 40 mg Vancomycin/Sodium Chloride (Vancocin) 200 mls @ 133 mls/hr IVPB Q12H [facility] Stop: 10/21/16 19:01 Last Admin: 10/18/16 06:45 Dose: 133 mls/hr Piperacillin Sod/Tazobactam Sod (Zosyn 3.375 In Ns 100ml) 100 mls @ 100 mls/hr IVPB Q6H [facility] Last Admin: 10/18/16 12:46 Dose: 100 mls/hr Saccharomyces Boulardii (Florastor) 250 mg PO BID [facility] Last Admin: 10/18/16 09:16 Dose: 250 mg - Labs Labs: 10/17/16 07:08 10/17/16 07:08 PT 14.3 SECONDS (9.7-12.2) H 10/17/16 07:08 INR 1.3 10/17/16 07:08 - Constitutional Appears: Non-toxic, No Acute Distress - Eye Exam Eye Exam: EOMI. absent: Scleral icterus - Cardiovascular Exam Cardiovascular Exam: +S1, +S2. absent: JVD - GI/Abdominal Exam GI & Abdominal Exam: Soft - Extremities Exam Extremities Exam: Pedal Edema, Tenderness Additional comments: R leg cellulitis. Small 1 cm abscess is draining. - Neurological Exam Neurological Exam: Alert, Awake, Oriented x3 - Psychiatric Exam Psychiatric exam: Normal Mood - Skin Skin Exam: Erythema, Warm Additional comments: actively draining purulent discharge Assessment and Plan - Assessment and Plan (Free Text) Assessment: 41M with R leg cellulitis and open abscess -actively drainining - cont IV ABX - no further surgical intervention needed at this time - d/w Dr. Danyel Plunkett PGY1
--- NOTE | 2016-10-23 14:16 | CARD ---
APPROVED REPORT EKG Measurement Heart [id number] <Conclusion> Normal sinus rhythm Normal ECG
== END 2016-10-18 15:15 | disposition home or self-care (01) | DRG 603 ==
LOC: C.ER 14:48 → C.9E 16:40 → C.3T 16:52
PROVIDERS: ADMIT Hospitalist; ATTEND Hospitalist
DX: L03.115 Cellulitis of right lower limb (principal); B95.62 Methicillin resistant Staphylococcus aureus infection as the cause of diseases classified elsewhere; L29.9 Pruritus, unspecified